=== PATIENT | female | born 2000 | race Two or more races ===

== ENCOUNTER 2024-07-10 23:44 | Emergency (ER) | payer BC, MEDICAID, SELFPAY ==
[2024-07-10 23:58] VITALS: BP 136/87; PULSE 92; RESP 18; TEMP 36.5; O2SAT 99; BMI 33.1
--- NOTE | 2024-07-11 00:01 | EKG_ITS ---
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
--- NOTE | 2024-07-11 00:01 | EDRME_ITS ---
Rapid Medical Screening Exam [facility] Arrival date/time: 07/10/24 23:44 23-year-old female with no known medical history presents to the emergency room with a chief complaint of dizziness, tunnel vision, lightheadedness x 1 day. Patient states that the symptoms have been going on for the last 2 weeks but have progressively gotten worse today. I have greeted and performed a focused initial assessment of this patient. A comprehensive ED assessment and evaluation of the patient, analysis of all test results, and completion of the medical decision making process will be conducted by additional ED providers. Chief Complaint: Dizziness Vital signs: Vital Signs Temperature 97.7 F 07/10/24 23:58 Pulse Rate 92 07/10/24 23:58 Respiratory Rate 18 07/10/24 23:58 Blood Pressure 136/87 H 07/10/24 23:58 Pulse Oximetry (%) 99 07/10/24 23:58 Oxygen Delivery Method Room Air 07/10/24 23:58 Vital signs reviewed by provider: Yes
--- NOTE | 2024-07-11 00:01 | XR_ITS ---
Examination: CT brain head without contrast. 2-D sagittal coronal reconstructions Date and time of exam:July 11, 2024 0039 hrs. Indications: Dizziness and lightheadedness onset today CTDI: vol (mGy):47.20 DLP: (mGycm):892 Technique: Multiple CT axial sections of the brain have been obtained, 5 mm slice thickness. Contrast has not been administered. 2-D sagittal, coronal reconstructions have been obtained Low dose protocols were performed. One or more of the following dose reduction techniques were used; automated exposure control, adjustment of the mA and/or KV according to patient size, use of iterative reconstruction technique. Findings: No significant ventricular enlargement. Intra-axial or extra-axial hemorrhage density is not seen. No mass effect or midline shift Basal cisterns are not remarkable. Fourth ventricle is midline. Cranial vault intact. Impression: Negative for acute hemorrhage, mass effect or midline shift Advise clinical correlation and follow-up accordingly
[2024-07-11 00:42] LABS: Basophils % (Auto) 0 % (0-2.5); Eosinophils # (Auto) 0.1 Thou/mm3 (0.0-0.5); Eosinophils % (Auto) 0 % (0-10); Hematocrit 36.5 % (36.0-46.0); Hemoglobin 12.4 g/dL (12.0-16.0); Immature Granulocytes % (Auto) 0 % (0-0); Immature Granulocytes Auto 0.05 Thou/mm3 (0.00-0.00); Lymphocytes # (Auto) 4.3 Thou/mm3 (1.0-4.8); Lymphocytes % (Auto) 25 % (10-50); Mean Corpuscular Hemoglobin 29.5 pg (25.0-35.0); Mean Corpuscular Volume 87 fL (80-100); Monocytes # (Auto) 1.1 Thou/mm3 (0.0-0.8); Monocytes % (Auto) 6 % (0-12); Neutrophils # (Auto) 11.7 Thou/mm3 (1.8-7.7); Neutrophils % (Auto) 68 % (37-80); Nucleated Red Blood Cell % 0 /100 WBC (0); Platelet Count 366 Thou/mm3 (140-440); RDW Standard Deviation 38.8 fL (36.4-46.3); White Blood Count 17.2 Thou/mm3 (3.6-11.0)
[2024-07-11 00:43] LABS: Collection Type, Urine Clean Catch
[2024-07-11 00:49] LABS: Bacteria,Urine Rare; Bilirubin,Urine Negative (Negative); Blood,Urine Negative (Negative); Clarity,Urine Clear (Clear/Hazy); Color,Urine Colorless (Lt Yel-Yel); Glucose, Urine Negative (Negative); Ketones,Urine Negative (Negative); Leukocyte Esterase,Urine Negative (Negative); Nitrite,Urine Negative (Negative); PH,Urine 6.5 (5.0-7.0); Protein,Urine Negative (Neg - Trace); RBC,Urine < 1 /hpf (0-3); Specific Gravity,Urine 1.004 (1.001-1.035); Squamous Epithelial Cell,Urine < 1 /hpf (0-5); Urobilinogen,Urine Negative mg/dL (0.0-1.0); WBC,Urine 1 /hpf (0-5)
[2024-07-11 01:10] LABS: Alanine Aminotransferase 14 U/L (10-49); Albumin, Serum 4.9 gm/dL (3.5-5.0); Alkaline Phosphatase 77 U/L (46-116); Anion Gap 7 (7-16); Aspartate Amino Transferase 12 U/L (0-34); BUN/Creatinine Ratio 9 Ratio (12-20); Bilirubin,Total 0.3 mg/dL (0.3-1.2); Blood Urea Nitrogen 6 mg/dL (9-23); Carbon Dioxide 23.2 mMol/L (20.0-31.0); Chloride 106 mMol/L (98-107); Creatinine (Component) 0.7 mg/dL (0.6-1.3); Estimated Creatinine Clearance 141.4 mL/min (>60); Free T4 (Free Thyroxine) 1.46 ng/dL (0.89-1.76); Globulin 2.5 gm/dL (2.3-3.5); Glucose 100 mg/dL (74-106); Osmolality,Calculated 269 (275-295); Potassium 3.2 mMol/L (3.4-5.1); Sodium 136 mMol/L (136-145); Thyroid Stimulating Hormone 3.79 uIU/mL (0.55-4.78); Total Protein 7.4 gm/dL (5.7-8.2); Troponin I < 0.002 ng/mL (0.0-0.045); eGFR > 60 See Note
--- NOTE | 2024-07-11 01:27 | PRELIM_ITS ---
CT scan of the head without intravenous contrast (axial sections with sagittal and coronal reformats) . July 11, 2024 at 0039 hoursClinical History: Dizziness/lightheaded.Radiation Dose: Total exam DL P 892 mGy/cm Comparison: No prior study is available for comparison. Findings:No evidence of intracr anial hemorrhage, mass effect or midline shift. The ventricles and CSF spaces are unremarkable. The c alvarium is unremarkable. The mastoid air cells and the visualized paranasal sinuses are clear.Impres pradeep:No evidence of intracranial hemorrhage, mass effect or midline shift. Report Electronically Sign ed By: Scott Mckeon 07/11/2024 1:26:17 AM [EST]
[2024-07-11] MEDS: POTASSIUM CHLORIDE 20 mEq TABCR 40 MEQ PO (02:04)
--- NOTE | 2024-08-27 07:39 | EDNOTE_ITS ---
ED Dizzyness RME/HPI General Chief Complaint: Dizziness Stated Complaint: Tunnel vision,dizzy,lightheaded Source: patient Arrival date/time: 07/10/24 23:44 23-year-old female with no known medical history presents to the emergency room with a chief complaint of dizziness, tunnel vision, lightheadedness x 1 day. Patient states that the symptoms have been going on for the last 2 weeks but have progressively gotten worse today. Mode of arrival: ambulatory Limitations: no limitations RME / HPI RME / HPI Narrative: 07/10/24 23:44 23-year-old female with no known medical history presents to the emergency room with a chief complaint of dizziness, tunnel vision, lightheadedness x 1 day. Patient states that the symptoms have been going on for the last 2 weeks but have progressively gotten worse today. I have greeted and performed a focused initial assessment of this patient. A comprehensive ED assessment and evaluation of the patient, analysis of all test results, and completion of the medical decision making process will be conducted by additional ED providers. Related Data Home Medications ?Medication ?Instructions ?Recorded ?Confirmed No Known Home Medications 07/14/20 07/14/20 Previous Rx's ?Medication ?Instructions ?Recorded ibuprofen 600 mg tablet 600 mg PO Q8H PRN pain #30 tabs 10/29/20 amoxicillin 875 mg-potassium 1 tab PO BID #14 tabs 03/07/21 clavulanate 125 mg tablet (Augmentin) Allergies Allergy/AdvReac Type Severity Reaction Status Date / Time No Known Allergies Allergy Verified 06/19/24 13:47 Review of Systems Review of Systems Systems Reviewed: All systems reviewed, normal except as documented Constitutional Constitutional: Reports system reviewed and no additional complaints, except as documented, Denies fatigue, Denies fever(s), Reports headache(s) and Reports weakness Eyes Eyes: Reports system reviewed and no additional complaints, except as documented, Denies blurry vision and Denies change in vision ENT Ears, Nose, Mouth, and Throat: Reports system reviewed and no additional complaints, except as documented, Denies otalgia, Reports headache(s), Denies nasal congestion, Denies throat swelling and Reports vertigo Cardiovascular Cardiovascular: Reports system reviewed and no additional complaints, except as documented, Denies chest pain, Denies dyspnea and Denies dyspnea on exertion Respiratory Respiratory: Reports system reviewed and no additional complaints, except as documented, Denies chest congestion, Denies cough, Denies dyspnea, Denies d yspnea on exertion and Denies wheezing Gastrointestinal Gastrointestinal: Reports system reviewed and no additional complaints, except as documented, Denies abdominal pain, Denies cramping, Denies nausea and Denies vomiting Genitourinary Genitourinary: Reports system reviewed and no additional complaints, except as documented Musculoskeletal Musculoskeletal: Reports system reviewed and no additional complaints, except as documented and Denies back pain Integumentary/Breasts Skin/Breast: Reports system reviewed and no additional complaints, except as documented and Denies wounds Neurologic Neurologic: Reports system reviewed and no additional complaints, except as documented, Denies confusion, Reports headache(s), Denies lack of coordination, Reports other visual disturbances, Reports vertigo and Reports weakness Psychiatric Psychiatric: Reports system reviewed and no additional complaints, except as documented, Denies anxiety, Denies confusion, Denies depression, Denies paranoia, Denies suicidal ideation and Denies tactile hallucinations Endocrine Endocrine: Reports system reviewed and no additional complaints, except as documented and Denies fatigue Hematologic/Lymphatic Hematologic/Lymphatic: Reports system reviewed and no additional complaints, except as documented and Denies lymphadenopathy Allergic/Immunologic Allergic/Immunologic: Reports system reviewed and no additional complaints, except as documented, Denies throat swelling, Denies urticaria and Denies wheezing Past Medical History Past Medical History NEUROLOGIC: Negative Neurological Disorders CARDIAC: Negative Cardiac Disorders or Congestive Heart Failure RESPIRATORY: Positive Asthma; Negative Chronic Obstructive Pulmonary Disease (COPD) GASTROINTESTINAL: Negative Gastrointestinal Disorders GENITOURINARY: Negative Genitourinary Disorders or Renal Disease MUSCULOSKELETAL: Negative Musculoskeletal Disorders ENDOCRINE: Negative Endocrine Disorders, Diabetes Mellitus Type 1 or Diabetes Mellitus Type 2 HEMATOLOGIC: Negative Blood Disorders or Sickle Cell Disease PSYCHO/SOCIAL: Positive Depression and Anxiety Social History SMOKING STATUS: Former smoker SUBSTANCE USE: marijuana ED Exam General Limitations: Present no limitations General appearance: Present alert and in no apparent distress Head Head exam: Present atraumatic Eye Eye exam: Present normal appearance, PERRL and EOMI ENT ENT exam: Present normal exam, normal oropharynx and mucous membranes moist Neck Neck exam: Present normal inspection, full ROM and trachea midline Chest Chest inspection: Present normal inspection and symmetric chest wall rise Respiratory Respiratory exam: Present normal lung sounds bilaterally Cardiovascular Cardiovascular exam: Present regular rate, normal rhythm and normal heart sounds Abdominal Exam Abdominal exam: Present soft and normal bowel sounds Extremities Exam Extremities exam: Present normal inspection and full ROM Back Exam Back exam: Present normal inspection and full ROM Neurological Exam Neurological exam: Present alert, oriented X3, CN II-XII intact, normal gait and reflexes normal Expanded Neurological Exam Patient oriented to: Present person, place and time Speech: Present fluid speech Cranial nerves: Normal: EOM function (II, III, IV, ) and facial sensation (V) Cerebellar function: Present normal gait Motor strength - LUE: 5/5 Motor strength - RUE: 5/5 Motor strength - LLE: 5/5 Motor strength - RLE: 5/5 Coma scale eye opening: spontaneous Coma scale motor response: obeys commands Coma scale verbal response: oriented Coma scale total: 15 Psychiatric Psychiatric exam: Present normal affect and normal mood Skin Skin exam: Present warm, dry, intact and normal color Course Quality Measures none Orders Category Date Time Status EKG (ED ONLY) *Do not use* NOW Care 07/11/24 00:[address] head/brain wo con Stat Exams 07/11/24 00:01 Completed EKG (ED Only) Stat Exams 07/11/24 00:01 Draft CBC Stat Lab 07/11/24 00:18 Completed Comprehensive Metabolic Panel Stat Lab 07/11/24 00:18 Completed Free T4 (Free Thyroxine) Stat Lab 07/11/24 00:18 Completed TSH [Thyroid Stimulating Hormone] Stat Lab 07/11/24 00:18 Completed Troponin I Stat Lab 07/11/24 00:18 Completed Urinalysis Stat Lab 07/11/24 00:40 Completed Urine Culture Stat Lab 07/11/24 00:40 Completed Potassium Chloride [K-Dur] Med 07/11/24 01:48 Discontinued 40 meq PO X1 ONE Vital Signs Vital signs: Vital Signs Temperature 97.7 F 07/10/24 23:58 Pulse Rate 92 07/10/24 23:58 Respiratory Rate 18 07/10/24 23:58 Blood Pressure 136/87 H 07/10/24 23:58 Pulse Oximetry (%) 99 07/10/24 23:58 Oxygen Delivery Method Room Air 07/10/24 23:58 99 percent within normal limits Procedures -ED EKG Interpretation #1: Date of EK07/11/24 Rate: 89 Interpretation: Reviewed by me EKG Impression: Normal sinus rhythm Dizziness MDM Narrative MDM Narrative:: 23-year-old female with no known medical history presents to the emergency room with a chief complaint of dizziness, tunnel vision, lightheadedness x 1 day. Patient states that the symptoms have been going on for the last 2 weeks but have progressively gotten worse today.clinically the patient is a gcs of 15 alert and oriented. ekg was completed and shows NSR with no st deviation. troponin was within normal limits. CT head and brain was completed and was negative for mass effect, hemmraghe or midline shift. pts potassium was slightly decreased at 3.2. pt given oral potassium. pt educated to follow up with primary doctor and to return to emergency room for any evidence of worsening symptoms Patient data External records reviewed:: [facility] previous records Clinical information provided by:: patient Social determinants that could affect healthcare access:: none Patient has the following chronic illnesses:: none How is presenting disease/condition affected by chronic disease/condition?: no chronic disease Evaluation data The following diagnostics were reviewed and interpreted by me:: lab results and radiology exam(s) Lab and/or radiology exams considered but not ordered:: labs and radiology exams considered Interpretation Summary: Findings: No significant ventricular enlargement. Intra-axial or extra-axial hemorrhage density is not seen. No mass effect or midline shift Basal cisterns are not remarkable. Fourth ventricle is midline. Cranial vault intact. Impression: Negative for acute hemorrhage, mass effect or midline shift Advise clinical correlation and follow-up accordingly Medications / Prescriptions Medications or Prescriptions considered but not ordered:: meds given Medication administrations:: Medication Administration History Discontinued Medications Potassium Chloride (Potassium Chloride 20 Meq Tabcr) 40 meq PO X1 ONE Stop: 07/11/24 01:49 Last Admin: 07/11/24 02:04 Dose: 40 meq Documented By: meds given Consultations Consultation(s) initiated? (list below): No Diagnosis Dizziness Differential Diagnosis: adverse reaction to drug, benign paroxysmal positional vertigo, cerebrovascular accident and other (dizziness) Most likely diagnosis given after review of the tests above:: dizziness Admission Indicated Admission indicated?: not indicated Admission Request Was there a request for admission?: No Disposition Plan Disposition Plan: Discharge Discharge Attestation Discharge Attestation: The patient and all family members were given an opportunity to ask questions and understood the discharge instructions. Discharge instructions specifically effects, indications for sooner follow up or return to the emergency department, and the expected course of current diagnosis. Patient condition: Stable Discharge Plan Plan Patient Disposition: HOME (Self Care) Disposition Comment: Stable Prescriptions/Referrals Prescriptions/Med Rec: No Action amoxicillin-pot clavulanate [Augmentin] 875-125 mg tablet 1 tab PO BID Qty: 14 0RF No Known Home Medications ibuprofen 600 mg tablet 600 mg PO Q8H PRN (Reason: pain) Qty: 30 0RF Referrals: No Primary/Family,Physician [Primary Care Provider] - In 1 week Problem List Clinical Impression: Hypokalemia, Weakness Patient/Caregiver Discharge Instructions Education Materials: ED Hypokalemia, ED Weakness (Uncertain Cause) Additional Instructions: Please follow-up with your primary care provider in the next [address] of your head and brain was completed and was negative for any acute findings. For any evidence of worsening signs or symptoms please return to the emergency room immediately Print Language: Kosovan Stand Alone Forms: [place] Award Info., Patient Portal Info Letter PA/GHASSAN Supervising Physician PA/GHASSAN Supervising Physician: Dr. Rogers
== END 2024-07-11 02:07 | disposition home or self-care (01) ==
PROVIDERS: Nurse Practitioner Family; Emergency Provider Emergency Medicine
DX: E87.6 Hypokalemia (principal); R53.1 Weakness; R42 Dizziness and giddiness; Z87.891 Personal history of nicotine dependence
CPT/HCPCS: 36415; 70450; 80053; 81001; 84439; 84443; 84484; 85025; 87086; 93005; 99284; A9270